=== PATIENT | male | born 1960 | race Caucasian/White ===

== ENCOUNTER → 2017-03-01 | Outpatient (CLI) | payer BC ==
[~2017-03-01] MED LIST: DICL75TA5 PO; IBUP-1724 PO
--- NOTE | 2017-03-01 16:23 | DI ---
Indication: ITS.REASON: S49.92XA INJURY OF LEFT SHOULDER AND UPPER ARM, INITIAL ENCOUNTER PROCEDURE: RADIUS/ULNA LEFT 2 VIEW: Encounter: Initial Comparison: None Findings: Mildly impacted fracture of the distal radius. Nondisplaced fracture of the distal ulna also seen. No additional acute fracture or dislocation. Impression: Closed posttraumatic distal radial and ulnar fractures. .
--- NOTE | 2017-03-01 16:24 | DI ---
Indication: ITS.REASON: S49.92XA INJURY OF LEFT SHOULDER AND UPPER ARM, INITIAL ENCOUNTER PROCEDURE: ELBOW LEFT 3 VIEW: Encounter: Initial Comparison: None Findings: There is no acute fracture, dislocation or malalignment identified. Enthesopathic changes noted at the radial tuberosity and olecranon process, probably chronic. Impression: No acute osseous abnormality. .
--- NOTE | 2017-03-01 16:25 | DI ---
Indication: ITS.REASON: S49.92XA INJURY OF LEFT SHOULDER AND UPPER ARM, INITIAL ENCOUNTER PROCEDURE: SHOULDER LEFT 2-3 VIEWS: Encounter: Initial Comparison: None Findings: There is no acute fracture, dislocation or malalignment identified. Impression: No acute osseous abnormality. .
--- NOTE | 2017-03-01 16:27 | DI ---
Indication: ITS.REASON: S49.92XA INJURY OF LEFT SHOULDER AND UPPER ARM, INITIAL ENCOUNTER PROCEDURE: WRIST LEFT 3-4 VIEWS: Encounter: Initial Comparison: None Findings: Minimally displaced fracture of the ulnar styloid. Nondisplaced fracture of the distal radial metaphysis with a fracture line extending into the radiocarpal joint. No additional acute fracture or dislocation seen. Impression: Closed posttraumatic distal radial and ulnar styloid fractures. .
== END ==
LOC: IMA 15:40
PROVIDERS: ATTEND Family Medicine
DX: S52.592A Other fractures of lower end of left radius, initial encounter for closed fracture (principal); S52.612A Displaced fracture of left ulna styloid process, initial encounter for closed fracture; W11.XXXA Fall on and from ladder, initial encounter; Y93.H9 Activity, other involving exterior property and land maintenance, building and construction; Y92.007 Garden or yard of unspecified non-institutional (private) residence as the place of occurrence of the external cause; Y99.9 Unspecified external cause status